=== PATIENT | male | born 1990 | race Two or more races ===

== ENCOUNTER 2017-02-07 21:44 | Emergency (ER) | payer SELFPAY ==
[2017-02-07 21:59] VITALS: BP 127/68; PULSE 82; RESP 18; TEMP 98.9; O2SAT 99
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
== END 2017-02-08 00:09 | disposition home or self-care (01) ==
LOC: H.ER 21:44
DX: Z04.1 Encounter for examination and observation following transport accident (principal)